=== PATIENT | male | born 1980 | race Caucasian/White ===

== ENCOUNTER → 2018-12-11 07:22 | Outpatient (CLI) | payer OTHER, SELFPAY ==
[2018-12-11 07:53] LABS: Hematocrit 43.1 % (41-53); Hemoglobin 14.3 g/dL (13.5-17.5); Mean Corpuscular HGB Conc 33.2 % (30-36); Mean Corpuscular Hemoglobin 27.4 PG (26-34); Mean Corpuscular Volume 82.4 fL (80-100); Platelet Count 193 X10^3/uL (150-400); Red Blood Cell Count 5.24 X10^6/uL (4.5-5.9); Red Cell Distribution Width 15.9 % (11.6-14.8); White Blood Cell Count 4.7 X10^3/uL (4.5-11.0)
[2018-12-11 08:14] LABS: Hemoglobin A1C% w Est Avg Glu 4.9 % (4.0-6.0)
[2018-12-11 08:15] LABS: Alanine Aminotransferase 29 IU/L (21-72); Albumin 4.5 g/dL (3.5-5.0); Albumin Globulin Ratio 1.8 (1.0-2.8); Alkaline Phosphatase 38 U/L (38-126); Aspartate Aminotransferase 33 IU/L (17-59); BUN Creatinine Ratio 17.7 (6-22); Bilirubin Total 0.9 mg/dL (0.2-1.3); Blood Urea Nitrogen 23 mg/dL (9-20); Calcium 9.6 mg/dL (8.4-10.2); Carbon Dioxide 28 mmol/L (22-32); Chloride 103 mmol/L (98-107); Estimated Glomerular Filt Rate > 60.0 mL/min (>60); Globulin 2.5 g/dL (1.7-4.1); Glucose 89 mg/dL (70-100); HEMOLYSIS < 15 (0-50); Potassium 3.9 mmol/L (3.4-5.1); Sodium 140 mmol/L (137-145)
[2018-12-11 08:16] LABS: C-Reactive Protein Quant < 0.5 mg/dL (<1.0)
[2018-12-11 08:25] LABS: Neutrophils Absolute Manual 2256 /uL (3000-5900); Total Cells Counted 100
[2018-12-11 08:28] LABS: Vitamin D 25 Hydroxy (D3) 46.9 ng/mL (30.0-100.0)
[2018-12-11 08:30] LABS: RBC Morphology Normal Morphology
[2018-12-11 08:45] LABS: TSH w/ Reflex to FT4 2.62 uIU/mL (0.47-4.68)
[2018-12-11 09:00] LABS: Vitamin B12 392 pg/mL (239-931)
[2018-12-13 13:53] LABS: Homocysteine 6.5 umol/L (< 11.4)
== END ==
PROVIDERS: PCP Family Medicine; Visit Provider Family Medicine
DX: E56.9 Vitamin deficiency, unspecified (principal); R00.2 Palpitations; Z00.01 Encounter for general adult medical examination with abnormal findings
CPT/HCPCS: 36415; 80053; 82306; 82607; 83036; 83090; 83735; 84403; 84443; 85025; 86140

== ENCOUNTER → 2020-05-27 08:28 | Outpatient (CLI) | payer OTHER, SELFPAY ==
[2020-05-27 09:30] LABS: Basophils Absolute Auto 0 /uL (0-100); Basophils Percent Auto 0.6 % (0-2); Eosinophils Absolute Auto 100 /uL (0-450); Eosinophils Percent Auto 2.3 % (2-4); Hematocrit 44.3 % (41-53); Hemoglobin 14.9 g/dL (13.5-17.5); Lymphocytes Absolute Auto 1400 /uL (1100-4500); Lymphocytes Percent Auto 28.1 % (25-40); Mean Corpuscular HGB Conc 33.6 % (30-36); Mean Corpuscular Hemoglobin 27.3 PG (26-34); Mean Corpuscular Volume 81.3 fL (80-100); Monocytes Absolute Auto 500 /uL (0-900); Monocytes Percent Auto 9.6 % (3-14); Neutrophils Absolute Auto 2900 /uL (1500-7000); Neutrophils Percent Auto 59.4 % (50-75); Platelet Count 190 X10^3/uL (150-400); Red Blood Cell Count 5.44 X10^6/uL (4.5-5.9); Red Cell Distribution Width 15.3 % (11.6-14.8); White Blood Cell Count 4.8 X10^3/uL (4.5-11.0)
[2020-05-27 09:48] LABS: Alanine Aminotransferase 26 IU/L (<50); Albumin 4.6 g/dL (3.5-5.0); Albumin Globulin Ratio 1.6 (1.0-2.8); Alkaline Phosphatase 35 U/L (38-126); Aspartate Aminotransferase 37 IU/L (17-59); BUN Creatinine Ratio 14.3 (6-22); Bilirubin Total 0.6 mg/dL (0.2-1.3); Blood Urea Nitrogen 18 mg/dL (9-20); Calcium 9.6 mg/dL (8.4-10.2); Carbon Dioxide 31 mmol/L (22-32); Chloride 102 mmol/L (98-107); Cholesterol 148 mg/dL (140-199); Estimated Glomerular Filt Rate > 60.0 mL/min (>60); Globulin 2.8 g/dL (1.7-4.1); Glucose 99 mg/dL (70-100); HDL Cholesterol 60 mg/dL (40-60); HEMOLYSIS < 15 (0-50); LDL Cholesterol Calculated 80 mg/dL (<100); Potassium 4.3 mmol/L (3.4-5.1); Sodium 137 mmol/L (137-145); Total Protein 7.4 g/dL (6.3-8.2); Triglycerides 40 mg/dL (35-150)
[2020-05-27 10:02] LABS: Vitamin D 25 Hydroxy (D3) 87.5 ng/mL (30.0-100.0)
[2020-05-27 10:18] LABS: TSH w/ Reflex to FT4 1.64 uIU/mL (0.47-4.68)
[2020-05-27 10:36] LABS: Vitamin B12 726 pg/mL (239-931)
[2020-05-27 11:03] LABS: Add Manual Diff / Slide Review SLIDE REVIEW; Anisocytosis 1+
== END ==
PROVIDERS: PCP Family Medicine; Referring Provider Family Medicine; Visit Provider Family Medicine
DX: Z00.00 Encounter for general adult medical examination without abnormal findings (principal); Z13.1 Encounter for screening for diabetes mellitus; Z13.6 Encounter for screening for cardiovascular disorders
CPT/HCPCS: 36415; 80053; 80061; 82306; 82607; 84443; 85025

== ENCOUNTER → 2020-06-07 13:39 | Outpatient (CLI) | payer OTHER, SELFPAY ==
[2020-06-07 14:45] LABS: Liquefaction Semen YES (YES); Sperm Count 54 x10^6/mL (20-150); Sperm Motility 50% % Motile
[2020-06-07 14:53] LABS: Sperm Morphology 87 %ABNORM (0-30)
== END ==
PROVIDERS: PCP Family Medicine; Referring Provider Family Medicine; Visit Provider Family Medicine
DX: Z30.09 Encounter for other general counseling and advice on contraception (principal)
CPT/HCPCS: 89320

== ENCOUNTER → 2021-09-11 06:50 | Outpatient (CLI) | payer OTHER, SELFPAY ==
[2021-09-11 08:10] LABS: Add Manual Diff / Slide Review NO; Basophils Absolute Auto 0 /uL (0-100); Basophils Percent Auto 0.8 % (0-2); Eosinophils Absolute Auto 100 /uL (0-450); Eosinophils Percent Auto 2.3 % (2-4); Hematocrit 40.7 % (41-53); Lymphocytes Absolute Auto 1500 /uL (1100-4500); Lymphocytes Percent Auto 36.8 % (25-40); Mean Corpuscular HGB Conc 34.4 % (30-36); Mean Corpuscular Hemoglobin 27.9 PG (26-34); Mean Corpuscular Volume 81.2 fL (80-100); Monocytes Absolute Auto 400 /uL (0-900); Monocytes Percent Auto 9.4 % (3-14); Neutrophils Absolute Auto 2100 /uL (1500-7000); Neutrophils Percent Auto 50.7 % (50-75); Platelet Count 170 X10^3/uL (150-400); Red Blood Cell Count 5.01 X10^6/uL (4.5-5.9); Red Cell Distribution Width 15.4 % (11.6-14.8); White Blood Cell Count 4.1 X10^3/uL (4.5-11.0)
[2021-09-11 08:20] LABS: Alanine Aminotransferase 19 IU/L (<50); Albumin 4.3 g/dL (3.5-5.0); Albumin Globulin Ratio 1.7 (1.0-2.8); Alkaline Phosphatase 37 U/L (38-126); Aspartate Aminotransferase 29 IU/L (17-59); BUN Creatinine Ratio 10.9 (6-22); Blood Urea Nitrogen 14 mg/dL (9-20); Calcium 9.2 mg/dL (8.4-10.2); Carbon Dioxide 28 mmol/L (22-32); Chloride 100 mmol/L (98-107); Cholesterol 150 mg/dL (140-199); Estimated Glomerular Filt Rate > 60 mL/min (>60); Globulin 2.5 g/dL (1.7-4.1); Glucose 91 mg/dL (70-100); HDL Cholesterol 56 mg/dL (40-60); HEMOLYSIS < 15 (0-50); LDL Cholesterol Calculated 83 mg/dL (<100); Potassium 4.3 mmol/L (3.4-5.1); Sodium 136 mmol/L (137-145); Total Protein 6.8 g/dL (6.3-8.2); Triglycerides 53 mg/dL (35-150)
== END ==
PROVIDERS: PCP Family Medicine; Referring Provider Family Medicine; Visit Provider Family Medicine
DX: N18.9 Chronic kidney disease, unspecified (principal)
CPT/HCPCS: 36415; 80053; 80061; 85025

== ENCOUNTER → 2022-09-28 08:06 | Outpatient (CLI) | payer OTHER, SELFPAY ==
[2022-09-28 09:28] LABS: Hematocrit 44.1 % (41-53); Mean Corpuscular Volume 82.4 fL (80-100); Platelet Count 192 X10^3/uL (150-400); Red Blood Cell Count 5.35 X10^6/uL (4.5-5.9); Red Cell Distribution Width 15.7 % (11.6-14.8); White Blood Cell Count 5.2 X10^3/uL (4.5-11.0)
[2022-09-28 09:34] LABS: Alanine Aminotransferase 27 IU/L (<50); Albumin 4.4 g/dL (3.5-5.0); Albumin Globulin Ratio 1.6 (1.0-2.8); Alkaline Phosphatase 43 U/L (38-126); Aspartate Aminotransferase 29 IU/L (17-59); BUN Creatinine Ratio 14.8 (6-22); Bilirubin Total 0.6 mg/dL (0.2-1.3); Blood Urea Nitrogen 21 mg/dL (9-20); Calcium 9.3 mg/dL (8.4-10.2); Carbon Dioxide 30 mmol/L (22-32); Chloride 104 mmol/L (98-107); Cholesterol 150 mg/dL (140-199); Estimated Glomerular Filt Rate > 60 mL/min (>60); Globulin 2.8 g/dL (1.7-4.1); Glucose 104 mg/dL (70-100); HDL Cholesterol 49 mg/dL (40-60); HEMOLYSIS < 15 (0-50); LDL Cholesterol Calculated 92 mg/dL (<100); Potassium 4.5 mmol/L (3.4-5.1); Sodium 139 mmol/L (137-145); Total Protein 7.2 g/dL (6.3-8.2); Triglycerides 47 mg/dL (35-150)
[2022-09-28 09:36] LABS: Add Manual Diff / Slide Review SLIDE REVIEW
[2022-09-28 09:51] LABS: Anisocytosis 2+
[2022-09-28 09:58] LABS: Cortisol AM (Before 10AM) 11.6 ug/dL (4.46-22.7); TSH w/ Reflex to FT4 1.24 uIU/mL (0.47-4.68)
[2022-09-28 10:01] LABS: Testosterone 611 ng/dL (132-813)
== END ==
PROVIDERS: PCP Family Medicine; Referring Provider Family Medicine; Visit Provider Family Medicine
DX: Z13.220 Encounter for screening for lipoid disorders (principal); Z13.9 Encounter for screening, unspecified; R53.83 Other fatigue
CPT/HCPCS: 36415; 80053; 80061; 82533; 84403; 84443; 85025

== ENCOUNTER 2022-11-14 09:14 | Emergency (ER) | payer OTHER, SELFPAY ==
--- NOTE | 2022-11-14 09:26 | ED_ITS ---
HPI - General Adult General Chief complaint: Back Pain/Injury Stated complaint: L side sciatic pain Time Seen by Provider: 11/14/22 09:19 History of Present Illness HPI narrative: 42-year-old male nonsmoker with history of low back pain presents with a chief complaint of significantly worsening low back pain with radiation down his left leg. He denies any trauma or injury. He denies fever or chills. He takes no blood thinners. He states that he has been dealing with some left low back pain and minor radicular symptoms for the past 4 weeks or so. He had tenderness in his piriformis and had been doing stretches with some relief. He states he moves in a particular fashion this morning and felt a popping sensation and now has significant pain and numbness shooting down his left lower back in the posterior leg. He denies loss of control of bowel or bladder. He denies any w eakness of his lower extremity. He has significant pain with motion and improvement with rest. He took Motrin 800 about 90 minutes ago Related Data Home Medications Medication Instructions Recorded Confirmed multivitamin (Multiple Vitamins 1 tab PO QDAY ##0 09/07/16 09/23/22 tablet) omega 1-pav-you-fish oil 1,000 mg 1,000 mg PO ##0 09/07/16 09/23/22 (120 mg-180 mg) capsule (Fish Oil) Previous Rx's Medication Instructions Recorded diazepam 5 mg tablet (Valium) 5 mg PO BID-QID PRN muscle spasm 11/14/22 #10 tabs hydrocodone 5 mg-acetaminophen 325 1 tab PO Q4-6H PRN pain #10 tabs 11/14/22 mg tablet ketorolac 10 mg tablet 10 mg PO Q6H PRN pain #14 tabs 11/14/22 methylprednisolone 4 mg tablets in See Rx Instructions PO .COMPLEX 11/14/22 a dose pack (Medrol (Darrno)) #21 ea Allergies Allergy/AdvReac Type Severity Reaction Status Date / Time No Known Drug Allergies Allergy Verified 11/14/22 09:28 Review of Systems Review of Systems Narrative: GENERAL: Denies chills, fatigue, malaise, fever, sweats. HEENT: Denies sinus pain, ear pain, sore throat, difficulty swallowing, dizziness. RESPIRATORY: Denies dyspnea, cough, wheezing, hemoptysis, sputum. CARDIOVASCULAR: Denies chest pain, palpitations, orthopnea, edema, GASTROINTESTINAL: Denies nausea, vomiting, abdominal pain, diarrhea, constipation, melena. : Denies dysuria, frequency, incontinence, hematuria, urinary retention. MUSCULOSKELETAL: See HPI SKIN: Denies rash, skin lesions, or other NEUROLOGIC: See HPI PSYCHIATRIC: No concerning psychosocial issues. 12 point review of systems is negative except for those stated above Patient History Medical History Family planning Heart palpitations Parotid gland pain Family History Mother Hypothyroid Social History marital status: Smoking Status: Never smoker alcohol intake: current (ON OCCASION ) substance use type: does not use Smoking Status: Never smoker Exam Narrative Exam Narrative: GENERAL: [42] year old patient appears stated age. Well-developed patient, in moderate distress, obviously in pain HEAD: Atraumatic. Normocephalic. EYES: Pupils equal round and reactive. Extraocular motions intact. No scleral icterus. No injection or drainage. ENT: Nose without bleeding, purulent drainage. Throat without erythema, tonsillar hypertrophy or exudate. Airway patent. NECK: Trachea midline. Non tender CARDIOVASCULAR: Regular rate and rhythm without murmurs, gallops, or rubs. RESPIRATORY: Clear to auscultation. Breath sounds equal bilaterally. No wheezes, rales, or rhonchi. GASTROINTESTINAL: Abdomen soft, non-tender, nondistended. EXTREMITIES: No edema or joint tenderness. 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 Patient exam notes decreased range of motion and muscle spasm, but no CVA tenderness, or vertebral point tenderness. There are no symptoms of cauda equina such as saddle anesthesia, and decreased reflexes, decreased sensation or strength. NEURO: AOx3. SKIN: No rash or erythema of visible areas Initial Vital Signs Initial Vital Signs: Vital Signs Temperature 98.2 F 11/14/22 09:28 Pulse Rate 83 11/14/22 09:28 Respiratory Rate 16 11/14/22 09:28 Blood Pressure 172/113 H 11/14/22 09:28 Pulse Oximetry 100 11/14/22 09:28 Oxygen Delivery Method Room Air 11/14/22 09:28 Course Orders Ordered: Discontinued Medications Hydrocodone Bitart/Acetaminophen (Hydrocodone/Acet 5/325 Tablet) 1 tab PO NOW ONE Stop: 11/14/22 11:10 Last Admin: 11/14/22 11:15 Dose: 1 tab Documented By: BETSY Diazepam (Diazepam 5 Mg Tablet) 5 mg PO NOW ONE Stop: 11/14/22 10:02 Last Admin: 11/14/22 10:11 Dose: 5 mg Documented By: DANYEL Gabapentin (Gabapentin 300 Mg Capsule) 300 mg PO NOW ONE Stop: 11/14/22 10:02 Last Admin: 11/14/22 10:11 Dose: 300 mg Documented By: DANYEL Prednisone (Prednisone 20 Mg Tablet) 40 mg PO NOW ONE Stop: 11/14/22 10:02 Last Admin: 11/14/22 10:11 Dose: 40 mg Documented By: DANYEL Vital Signs Vital signs: Vital Signs - 8 hr 11/14/22 09:28 Temperature 98.2 F Pulse Rate 83 Respiratory Rate 16 Blood Pressure 172/113 H Pulse Oximetry 100 Oxygen Delivery Method Room Air Medical Decision Making [facility] Narrative Medical decision making narrative: [42] year old patient presents with Multiple etiologies of back pain considered including; Epidural abscess, cauda equina, mass occupying lesion, and other considered] Prior Charts reviewed in our EMR Primary Historian: patient Patient's symptoms improved over duration of stay with above-stated therapies. History and physical exam are reassuring. Thankfully there are no elements of the story or exam that are red flags for neurosurgical emergencies such as epidural abscess, hematoma, cauda equina. Given lack of direct trauma there is little utility for x-ray. Findings and discharge diagnosis discussed with patient/family followed by verbalization of understanding Return precautions discussed with patient/family whom verbalize understanding of diagnosis and plan Discharge Plan Departure Patient Disposition: Home Clinical Impression: Acute left lumbar radiculopathy Instructions: DI for Lumbar Radiculopathy Activity Restrictions/Additional Instructions: *You have been diagnosed with [acute left-sided lumbar radiculopathy. Thankfully as we discussed your history and physical exam are reassuring and there is no evidence of a neurosurgical emergency that would require a specific or immediate intervention.] *What to do: *Please continue to take your regular medications as directed. [ x] New medication prescriptions sent to your pharmacy: [ [facility]] [ ] New medication written as a paper prescription [ ] No new medications given *Please follow up with your primary care provider in 2-3 days, call for an appointment. Let them know you were seen in the Emergency Department and that we ask that you be seen in follow up. We will electronically transmit a record of today's note if your PCP is in our system *Return to Emergency Department if you should have any new, worsening or concerning symptoms, such as [fever greater than 101 F, shaking chills, worsening pain, loss of control of bowel or bladder, weakness of your leg or other bothersome symptoms Prescriptions: New hydrocodone-acetaminophen 5-325 mg tablet 1 tab PO Q4-6H PRN (Reason: pain) Qty: 10 0RF ketorolac 10 mg tablet 10 mg PO Q6H PRN (Reason: pain) Qty: 14 0RF methylprednisolone [Medrol (Darron)] 4 mg tablets,dose pack See Rx Instructions .ROUTE .COMPLEX Qty: 21 0RF Rx Instructions: orally per package directions diazepam [Valium] 5 mg tablet 5 mg PO BID-QID PRN (Reason: muscle spasm) Qty: 10 0RF No Action multivitamin [Multiple Vitamins] 1 EACH tablet 1 tab PO QDAY Qty: 0 omega 4-mkd-fxw-fish oil [Fish Oil] 1,000 MG capsule 1,000 mg PO Qty: 0 Referrals: Wiliam Conner DO [Physician] - Rubin Woods MD [Primary Care Provider] - Bal Grider MD [Physician] - Stand Alone Forms: Patient Portal/API
[2022-11-14 09:28] VITALS: BP 172/113; PULSE 83; RESP 16; TEMP 36.8; O2SAT 100; BMI 28.5
--- NOTE | 2022-11-14 09:53 | PC.NURSE ---
pt states he has been having mild sciatica the last 4 weeks but today it pain shot through the roof and he is having difficulty with even walking. at home he has been doing stretches, foam rollers, ice, massage (deep tissue), chiropractic, acupuncture. pt describes his gluteal and periformis muscles as most uncomfortable.
[2022-11-14] MEDS: diazePAM 5 MG TABLET PO (10:11)
[2022-11-14] MEDS: GABAPENTIN 300 MG CAPSULE PO (10:11)
[2022-11-14] MEDS: predniSONE 20 MG TABLET 40 MG PO (10:11)
[2022-11-14] MEDS: HYDROCODONE/ACET 5/325 TABLET 1 TAB PO (11:15)
== END 2022-11-14 11:21 | disposition home or self-care (01) ==
PROVIDERS: Emergency Provider Emergency Medicine; PCP Family Medicine
DX: M54.16 Radiculopathy, lumbar region (principal)
CPT/HCPCS: 99283

== ENCOUNTER 2022-11-16 17:25 | Emergency (ER) | payer OTHER, SELFPAY ==
[2022-11-16 17:47] VITALS: BP 153/57; PULSE 59; RESP 18; TEMP 37.2; O2SAT 100; BMI 27.1
[2022-11-16] MEDS: diazePAM 5 MG TABLET PO (17:51)
[2022-11-16] MEDS: HYDROMORPHONE 1 MG INJ IM (18:06)
--- NOTE | 2022-11-16 19:11 | ED_ITS ---
HPI - Back Pain/Injury General Chief Complaint: Back Pain/Injury Stated Complaint: sciatic nerve pain T-2 Time Seen by Provider: 11/16/22 17:38 Source: patient and family History of Present Illness HPI Narrative: 42-year-old male who is here in the emergency department a couple days ago for left-sided lower back pain with left-sided radiculopathy. Was not 1 specific incident that caused the discomfort. He is not having any urinary symptoms nor fevers nor bowel changes. No abdominal pain. No saddle anesthesia. When he was here in the emergency department he was started on steroids and given muscle relaxers and pain medication and ketorolac. He states he still continues to have discomfort. Not so much with palpation but more so with movement and especially with standing. Related Data Home Medications Medication Instructions Recorded Confirmed multivitamin (Multiple Vitamins 1 tab PO QDAY ##0 09/07/16 09/23/22 tablet) omega 6-pdb-vop-fish oil 1,000 mg 1,000 mg PO ##0 09/07/16 09/23/22 (120 mg-180 mg) capsule (Fish Oil) Previous Rx's Medication Instructions Recorded diazepam 5 mg tablet (Valium) 5 mg PO BID-QID PRN muscle spasm 11/14/22 #10 tabs hydrocodone 5 mg-acetaminophen 325 1 tab PO Q4-6H PRN pain #10 tabs 11/14/22 mg tablet ketorolac 10 mg tablet 10 mg PO Q6H PRN pain #14 tabs 11/14/22 methylprednisolone 4 mg tablets in See Rx Instructions PO .COMPLEX 11/14/22 a dose pack (Medrol (Darron)) #21 ea docusate sodium 100 mg capsule 100 mg PO BID #30 caps 11/16/22 (Colace) hydrocodone 5 mg-acetaminophen 325 2 tab PO Q4-6H PRN pain #25 tabs 11/16/22 mg tablet meloxicam 7.5 mg tablet 7.5 mg PO BID #60 tabs 11/16/22 Allergies Allergy/AdvReac Type Severity Reaction Status Date / Time No Known Drug Allergies Allergy Verified 11/16/22 17:56 Review of Systems Constitutional Constitutional: Reports system reviewed and no additional complaints, except as documented Gastrointestinal Gastrointestinal: Reports system reviewed and no additional complaints, except as documented Genitourinary Genitourinary: Reports system reviewed and no additional complaints, except as documented Musculoskeletal Musculoskeletal: Reports system reviewed and no additional complaints, except as documented Integumentary/Breasts Skin/Breast: Reports system reviewed and no additional complaints, except as documented Neurologic Neurologic: Reports system reviewed and no additional complaints, except as documented Patient History Medical History Family planning Heart palpitations Parotid gland pain Family History Mother Hypothyroid Social History marital status: Smoking Status: Never smoker alcohol intake: current (ON OCCASION ) substance use type: does not use Smoking Status: Never smoker alcohol intake frequency: a few times a week Substance Use Type: does not use Exam Initial Vital Signs Initial Vital Signs: Vital Signs Temperature 99 F 11/16/22 17:47 Pulse Rate 59 L 11/16/22 17:47 Respiratory Rate 18 11/16/22 17:47 Blood Pressure 153/57 H 11/16/22 17:47 Pulse Oximetry 100 11/16/22 17:47 Oxygen Delivery Method Room Air 11/16/22 17:47 Const General: cooperative and No ill appearing HENMA Head: normal to inspection and normocephalic Back/Spine/Pelvis Thoracic/Lumbar Spine: No paraspinal tenderness, No thoracic spinal tenderness and No lumbar spinal tenderness Neuro General: patient alert, patient awake and moves all extremities Extrem General: normal to inspection and capillary refill normal Course Orders Ordered: ED Orders 11/16/22 19:11 XR lumbar spine 2-3V Stat Discontinued Medications Diazepam (Diazepam 5 Mg Tablet) 5 mg PO NOW ONE Stop: 11/16/22 17:48 Last Admin: 11/16/22 17:51 Dose: 5 mg Documented By: CAN Hydromorphone HCl (Hydromorphone 1 Mg Inj) 1 mg IM NOW ONE Stop: 11/16/22 17:56 Last Admin: 11/16/22 18:06 Dose: 1 mg Documented By: ZACH Ketorolac Tromethamine (Ketorolac 30 Mg/Ml Vial) 30 mg IM NOW ONE Stop: 11/16/22 17:48 Last Admin: 11/16/22 17:57 Dose: Not Given Documented By: CAN Vital Signs Vital signs: Vital Signs - 8 hr 07/08/23 17:47 11/16/22 21:01 Temperature 99 F Pulse Rate 59 L 51 L Respiratory Rate 18 Blood Pressure 153/57 H 127/76 Pulse Oximetry 100 97 Oxygen Delivery Method Room Air Room Air MDM - Back Pain/Injury Imaging Data lumbar x-rays: Radiologist's Impression: PROCEDURE:? XR LUMBAR SPINE 2-3V ? INDICATIONS:? L lower back pain with radiculopathy ? TECHNIQUE:? 3 views of the lumbar spine were acquired.? ? COMPARISON:? None. ? FINDINGS:? ? Bones:? 5 [id number]-[id number] vertebrae are present.? There is normal bony alignment.? No vertebral body compression fractures.? No suspicious bony lesions.? ? Soft tissues:? Overlying bowel gas pattern is normal.? No suspicious soft tissue calcifications.? Surgical changes of prior right inguinal hernia repair.? ? ? IMPRESSION:? Intact lumbar spine. MDM Narrative Medical decision making narrative: Patient does have lower back pain with left-sided radiculopathy. Low suspicion for cauda equina. X-ray negative for acute fracture. I have low suspicion for epidural abscess/hematoma. I had a long discussion with the patient and his at bedside regarding his symptoms. Patient was here hoping to get an MRI however we do not have MRI capability at this time here in the emergency department. I feel that there is no emergent reason to obtain an MRI. He may require 1 in the future however a course of medications and physical therapy would not be unreasonable 1st. Advised that he contact his primary doctor to discuss this and he could potentially get an MRI as an outpatient. He certainly should have follow-up with physical therapy and he will contact his primary doctor about this. I will refill his medications. I will switch him from ketorolac to Mobic. He was given return precautions. He expressed understa nding and agreement. Discharge Plan Departure Patient Disposition: Home Clinical Impression: Low back pain radiating to left lower extremity Instructions: DI for Lumbar Radiculopathy Activity Restrictions/Additional Instructions: I do recommend that you continue to take the medications as directed. You have no restrictions on your activities and I do recommend that you try to be as active as possible. I also recommend that you contact your primary doctor for continued evaluation and referrals if needed. Prescriptions: New meloxicam 7.5 mg tablet 7.5 mg PO BID Qty: 60 0RF docusate sodium [Colace] 100 mg capsule 100 mg PO BID Qty: 30 0RF hydrocodone-acetaminophen 5-325 mg tablet 2 tab PO Q4-6H PRN (Reason: pain) Qty: 25 0RF No Action multivitamin [Multiple Vitamins] 1 EACH tablet 1 tab PO QDAY Qty: 0 omega 0-nbm-mra-fish oil [Fish Oil] 1,000 MG capsule 1,000 mg PO Qty: 0 hydrocodone-acetaminophen 5-325 mg tablet 1 tab PO Q4-6H PRN (Reason: pain) Qty: 10 0RF ketorolac 10 mg tablet 10 mg PO Q6H PRN (Reason: pain) Qty: 14 0RF methylprednisolone [Medrol (Darron)] 4 mg tablets,dose pack See Rx Instructions .ROUTE .COMPLEX Qty: 21 0RF Rx Instructions: orally per package directions diazepam [Valium] 5 mg tablet 5 mg PO BID-QID PRN (Reason: muscle spasm) Qty: 10 0RF Referrals: Rubin Woods MD [Primary Care Provider] - Stand Alone Forms: Patient Portal/API
--- NOTE | 2022-11-16 19:11 | DI.RAD.S_ITS ---
PROCEDURE: XR LUMBAR SPINE 2-3V INDICATIONS: L lower back pain with radiculopathy TECHNIQUE: 3 views of the lumbar spine were acquired. COMPARISON: None. FINDINGS: Bones: 5 zju-zbv-[id number] vertebrae are present. There is normal bony alignment. No vertebral body compression fractures. No suspicious bony lesions. Soft tissues: Overlying bowel gas pattern is normal. No suspicious soft tissue calcifications. Surgical changes of prior right inguinal hernia repair. IMPRESSION: Intact lumbar spine. Dictated by: Becka Mcneil M.D. on 11/16/2022 at 20:10 Approved by: Becka Mcneil M.D. on 11/16/2022 at 20:11
[2022-11-16 21:01] VITALS: BP 127/76; PULSE 51; O2SAT 97
== END 2022-11-16 21:30 | disposition home or self-care (01) ==
PROVIDERS: Emergency Provider Emergency Medicine; PCP Family Medicine
DX: M54.50 Low back pain, unspecified (principal); M54.16 Radiculopathy, lumbar region
CPT/HCPCS: 72100; 96372; 99283; 99284; J1170; J1885

== ENCOUNTER → 2022-11-19 07:16 | Outpatient (CLI) | payer OTHER, SELFPAY ==
--- NOTE | 2022-11-19 07:17 | DI.MRI.S_ITS ---
PROCEDURE: MR LUMBAR SPINE WO CON INDICATIONS: Left L5 Radic TECHNIQUE: Noncontrast sagittal T1 spin echo and T2 fast echo, sagittal STIR, and T2 fast spin echo through the lumbar spine. In cases with scoliosis, additional coronal T2 fast spin echo may be performed. COMPARISON: [facility], CR, XR LUMBAR SPINE 2-3V, 11/16/2022, 19:12. FINDINGS: Image quality: Excellent. Alignment and Curvature: There is normal bony alignment. Bone Marrow: Marrow is of normal overall signal. No acute vertebral body compression fractures. No suspicious osseous edema. Spinal Cord: Conus medullaris terminates at the L1 level. Visualized cord demonstrates normal signal and size. Paraspinous Soft Tissues: No paravertebral masses. T12-L1: Normal appearance. L1-L2: Normal appearance. L2-L3: Normal appearance. L3-L4: Normal appearance. L4-L5: Mild disc height loss and desiccation. Mild circumferential diffuse disc bulge. There is peripheral posterior high T2 signal left paracentral indicating a small annular tear. There is minimal bulging of the disc at this level. There is encroachment on left neural foramen at and just below the disc line affecting the left L5 nerve root in the lateral recess. Mild facet and ligamentum flavum hypertrophy. Overall mild central canal narrowing. No foraminal narrowing. L5-S1: Mild disc desiccation and slight disc height loss. Mild to moderate broad-based disc bulge left central and inferior foraminal, superimposed on mild diffuse disc bulge. Disc material posteriorly displaces the left S1 nerve root in the lateral recess. There is mild enlargement and inflammation of the left S1 nerve root in the lateral recess. There is mild foraminal narrowing and no significant encroachment on the exiting left L5 nerve root. Mild facet arthropathy and slight ligamentum flavum hypertrophy contribute to cause of mild central canal narrowing. Mild bilateral foraminal narrowing, left worse than right. IMPRESSION: 1. Narrowing of the left lateral recess by broad-based disc bulge at the L4-5 level may affect the left L5 nerve root. 2. Broad-based L5-S1 disc bulge likely effects the left S1 nerve root in the lateral recess. Dictated by: Becka Mcneil M.D. on 11/19/2022 at 8:31 Approved by: Becka Mcneil M.D. on 11/19/2022 at 8:47
== END ==
PROVIDERS: PCP Family Medicine; Referring Provider Physical Medicine & Rehabilitation; Visit Provider Physical Medicine & Rehabilitation
DX: M51.16 Intervertebral disc disorders with radiculopathy, lumbar region (principal); M51.17 Intervertebral disc disorders with radiculopathy, lumbosacral region
CPT/HCPCS: 72148

== ENCOUNTER 2022-11-21 07:37 | Outpatient (CLI) | payer OTHER, SELFPAY ==
[2022-11-21] VITALS (7 sets, daily range): BP systolic 119–159; BP diastolic 74–101; PULSE 78–105; RESP 13–20; TEMP 36.3; O2SAT 94–99
--- NOTE | 2022-11-21 07:38 | DI.RAD.S_ITS ---
PROCEDURE: PAIN L INTERLAMINAR/CAUDAL INJ INDICATIONS: SPONDYLOSIS COMPARISON: [facility], MR, MR LUMBAR SPINE WO CON, 11/19/2022, 7:27. FINDINGS: Fluoroscopic spot filming was performed to verify placement of a spinal needle at the L5-S1 level, as labeled on the films. Appropriate location of the needle tip was confirmed by injection of iodinated contrast. IMPRESSION: No significant intraprocedural abnormality. Dictated by: Joe Herron M.D. on 11/21/2022 at 9:14 Approved by: Joe Herron M.D. on 11/21/2022 at 9:14
[2022-11-21] MEDS: MIDAZOLAM 2 MG/2 ML VIAL IV (08:33)
[2022-11-21] MEDS: BUPIVACAINE 0.25% (PF) VIAL 2 ML INJ (08:39)
[2022-11-21] MEDS: IOPAMIDOL 15 ML VIAL 3 ML INJ (08:40)
[2022-11-21] MEDS: BETAMETHASONE 30 MG/5 ML MDV 6 MG INJ (08:40)
[2022-11-21] MEDS: DEXAMETHASONE 10 MG/ML VIAL 20 MG INJ (08:40)
--- NOTE | 2022-11-21 08:59 | P.PCN_ITS ---
Date/Time/Diagnoses Date of procedure: 11/21/22 Time of procedure: 08:59 Pre-procedure diagnosis: 1. HNP WITH RADICULAR FEATURES, 2. MULTILEVEL CENTRAL STENOSIS, Post-procedure diagnosis: same Procedure Notes Procedure: 1. FLUOROSCOPICALLY GUIDED CONTRAST CONTROLLED INTERLAMINAR EPIDURAL STEROID INJECTION - L5/S1 Indications: Brent is referred by Dr. Woods for treatment of Bilateral Foraminal Stenosis L>R LE symptoms. Physician: Wiliam Conner Total Fluoroscopy time (seconds): 12 Total sedation minutes: 17 Complications: none Procedure in detail & Post-procedure care: FINDINGS Multilevel Central Spinal Stenosis with Nerve Root Compression DESCRIPTION OF PROCEDURE Fluoroscopically guided, contrast-controlled L5/S1 translaminar epidural steroid injection. Following review of allergy and review of potential side effects and complications, including, but not necessarily limited to, infection, allergic reaction, local tissue breakdown, temporary as well as permanent nerve injury, paralysis, stroke and possible , the patient indicated that the patient understood and agreed to proceed. An informed consent document was signed by the patient, witnessed by a nurse, and placed in the patient's chart. Additionally, other treatment options including modalities, medications, and physical therapy were reviewed with the patient. After review of previous anaesthesic history and IV conscious sedation the patient was deemed safe to proceed with today?s procedure with IV conscious sedation as ASA class II designation. Safety time-out was performed to confirm p atient ID, procedure to be performed and site of procedure. IV sedation was accomplished with a combination of 2mg of Versed administered by the RN after DO order, titrated to patient comfort during the course of the procedure while the patient remained responsive to all verbal commands. In the prone position, following sterile prep and drape of the lumbar region, the L5/S1 translaminar space was identified fluoroscopically. The skin was anesthetized via a 25-gauge, 1.5-inch needle with 1% lidocaine solution. At this point, a 22-gauge short bevel spinal needle was atraumatically introduced and advanced under fluoroscopic guidance into the region of the L5/S1 translaminar space. Depth was confirmed on lateral view. Radiological data, including multiple fluoroscopic views of the lumbar spine, reveal a spinal needle at the L5/S1 translaminar space. Lateral views then show placement of the needle in the epidural space. Subsequent views show contrast material flowing superiorly and inferiorly in the epidural space. No vascular or intrathecal uptake is observed. At this point, using loss of resistance technique with saline and air, the epidural space was entered. This was confirmed following negative aspiration with injection of approximately 1.5cc of Isovue 200, showing excellent epidural flow without vascular or intrathecal uptake. At this point, 1 cc of 1% lidocaine solution combined with 3cc or 20mg of dexamethasone and 6mg of betamethasone was injected without incident. The patent tolerated the procedure without signs of symptoms of complications prior to transfer to the recovery area for further monitoring. The patient was then transferred to the recovery area where they were observed for an appropriate period of time after the injection. The patient reported a VAS score of 8 prior to the procedure and a post-procedure VAS of 0. POST OP INSTRUCTIONS The patient was provided a Pain Log to continue to record their response to the target-specific procedure prior to follow-up visit with their referring physician. Additionally, specific post-injection care instructions and a contact number to our office were provided if concerns arise regarding possible complications associated with the procedure are suspected.
== END 2022-11-21 09:06 | disposition home or self-care (01) ==
LOC: RAD 07:37
PROVIDERS: PCP Family Medicine; Referring Provider Physical Medicine & Rehabilitation; Visit Provider Physical Medicine & Rehabilitation
DX: M51.17 Intervertebral disc disorders with radiculopathy, lumbosacral region (principal); M48.07 Spinal stenosis, lumbosacral region
CPT/HCPCS: 62323; 99152; J0702; J1100; J2250; J3490

== ENCOUNTER → 2022-12-05 12:58 | Outpatient (CLI) | payer OTHER, SELFPAY ==
[2022-12-05] VITALS (12 sets, daily range): BP systolic 94–146; BP diastolic 53–88; PULSE 74–114; RESP 9–22; TEMP 36.6; O2SAT 95–100
--- NOTE | 2022-12-05 13:00 | DI.RAD.S_ITS ---
PROCEDURE: PAIN L/S TRANSFORAM INJECT ADRIANA COMPARISON: [facility], XA, PAIN L INTERLAMINAR/CAUDAL INJ, 11/21/2022, 8:39. INDICATIONS: SPINAL STENOSIS FINDINGS: Fluoroscopic spot filming was performed to verify placement of spinal needles on the left at the L4-L5 and L5-S1 levels, as labeled on the films. Appropriate location of the needle tips was confirmed by injection of iodinated contrast. IMPRESSION: Intraprocedural examination demonstrating appropriate positions of the needles. Dictated by: Joe Herron M.D. on 12/05/2022 at 14:11 Approved by: Joe Herron M.D. on 12/05/2022 at 14:12
[2022-12-05] MEDS: fentaNYL 100 MCG/2 ML INJ 50 MCG IV ×2 (14:24→14:47)
[2022-12-05] MEDS: SODIUM CHLORIDE 0.9% 500 ML 1000 ML IV (14:24)
[2022-12-05] MEDS: MIDAZOLAM 2 MG/2 ML VIAL IV (14:24)
[2022-12-05] MEDS: BUPIVACAINE 0.5% (PF) 10 ML VIAL 5 ML INJ (14:30)
[2022-12-05] MEDS: BETAMETHASONE 30 MG/5 ML MDV 12 MG INJ (14:30)
[2022-12-05] MEDS: IOPAMIDOL 15 ML VIAL 3 ML INJ (14:31)
[2022-12-05] MEDS: methylPREDNISolone acetate 80 MG/ML VIAL INJ (14:31)
[2022-12-05] MEDS: MIDAZOLAM 2 MG/2 ML VIAL 1 MG IV ×2 (14:34→14:43)
--- NOTE | 2022-12-05 14:56 | P.PCN_ITS ---
Date/Time/Diagnoses Date of procedure: 12/05/22 Time of procedure: 14:56 Pre-procedure diagnosis: 1. FORAMINAL STENOSIS WITH LE SYMPTOMS Post-procedure diagnosis: same Procedure Notes Procedure: 1. FLUOROSCOPICALLY GUIDED CONTRAST CONTROLLED TRANSFORAMINAL EPIDURAL STEROID INJECTION - LEFT L4/5 Indications: Brent is referred by Dr. Woods and Can for treatment of HNP with Left LE Symptoms Physician: Wiliam Conner Total Fluoroscopy time (seconds): 17 Total sedation minutes: 24 Complications: none Procedure in detail & Post-procedure care: FINDINGS Foraminal Nerve Root Compression secondary to disc disease and facet hypertrophy DESCRIPTION OF PROCEDURE Following review of allergy and review of potential side effects and complications, including, but not necessarily limited to, infection, allergic reaction, local tissue breakdown, stroke, temporary or permanent nerve injury, paralysis, and possible , the patient indicated that the patient understood and agreed to proceed. An informed consent document was signed by the patient, witnessed by a nurse, and placed in the patient's chart. Additionally, other treatment options including medications, modalities, and physical therapy were reviewed with the patient. After review of previous anaesthesic history and IV conscious sedation the patient was deemed safe to proceed with today?s procedure with IV conscious sedation as ASA class II designation. Safety time-out was performed to confirm patient ID, procedure to be performed and site of procedure. IV sedation was accomplished with a combination of 3mg of Versed and 50mcg of Fentanyl administered by the RN after DO order, titrated to patient comfort during the course of the procedure while the patient remained responsive to all verbal commands. In the prone position following sterile prep and drape of the lumbar region, the left L4/5 posterior neuroforamen was identified fluoroscopically. The skin was anesthetized via a 25-gauge 1.5-inch needle with 1% lidocaine solution. At this point, a 25-gauge 3.5-inch spinal needle was atraumatically introduced and advanced under fluoroscopic guidance through the posterior left L4/5 neuroforamen to approximately the anterior aspect of the canal. Depth was confirmed on lateral view. Following negative aspiration, injection of approximately 1.5 cc of Isovue 200 under live fluoroscopy in the AP view confirmed excellent flow along the nerve root, into the epidural space without vascular or intrathecal uptake observed Radiological data, including multiple fluoroscopic views of the lumbosacral spine, reveal a spinal needle at the left L4/5 posterior neuroforamen. Subsequent views show flow of contrast material flowing superiorly and inferiorly along the nerve root confirming epidural flow. Subsequently, a test dose of 1.5 cc of 1% lidocaine solution was administered and patient was observed for two minutes for signs or symptoms of complications, including abdominal pain, shortness of breath, bilateral upper or lower extremity weakness, nausea and vomiting, prior to steroid injection. At this point, a total of 3cc or 40mg of depo medrol and 12mg of betamethasone was injected without incident. The procedure tolerated the procedure well without signs or symptoms of complications prior to transfer to the recovery area continued monitoring without incident. The patient was then transferred to the recovery area where they were observed for an appropriate time after the injection. The patient reported a VAS score of 8 prior to the procedure and a post- procedure VAS of 2. POST OP INSTRUCTIONS The patient was provided a Pain Log to continue to record their response to the target-specific procedure prior to follow-up visit with their referring physician. Additionally, specific post-injection care instructions and a contact number to our office were provided if concerns arise regarding possible complications associated with the procedure are suspected.
--- NOTE | 2022-12-05 14:59 | P.PCN_ITS ---
Date/Time/Diagnoses Date of procedure: 12/05/22 Time of procedure: 14:59 Pre-procedure diagnosis: 1. FORAMINAL STENOSIS WITH LE SYMPTOMS Post-procedure diagnosis: same Procedure Notes Procedure: 1. FLUOROSCOPICALLY GUIDED CONTRAST CONTROLLED TRANSFORAMINAL EPIDURAL STEROID INJECTION - Left L5/S1 Indications: Brent is referred by and Can for treatment of HNP with Left LE Symptoms Physician: Wiliam Conner Total Fluoroscopy time (seconds): 17 Total sedation minutes: 24 Complications: none Procedure in detail & Post-procedure care: FINDINGS Foraminal Nerve Root Compression secondary to disc disease and facet hypertrophy DESCRIPTION OF PROCEDURE Following review of allergy and review of potential side effects and complications, including, but not necessarily limited to, infection, allergic reaction, local tissue breakdown, stroke, temporary or permanent nerve injury, paralysis, and possible , the patient indicated that the patient understood and agreed to proceed. An informed consent document was signed by the patient, witnessed by a nurse, and placed in the patient's chart. Additionally, other treatment options including medications, modalities, and physical therapy were reviewed with the patient. After review of previous anaesthesic history and IV conscious sedation the patient was deemed safe to proceed with today?s procedure with IV conscious sedation as ASA class II designation. Safety time-out was performed to confirm patient ID, procedure to be performed and site of procedure. IV sedation was accomplished with a combination of 3mg of Versed and 50mcg of Fentanyl was administered by the RN after DO order, titrated to patient comfort during the course of the procedure while the patient remained responsive to all verbal commands In the prone position following sterile prep and drape of the lumbar region, the Left L5/S1 posterior neuroforamen was identified fluoroscopically. The skin was anesthetized via a 25-gauge 1.5-inch needle with 1% lidocaine solution. At this point, a 25-gauge 3.5-inch spinal needle was atraumatically introduced and advanced under fluoroscopic guidance through the posterior Left L5/S1 neurofor amen to approximately the anterior aspect of the canal. Depth was confirmed on lateral view. Following negative aspiration, injection of approximately 1.5 cc of Isovue 200 under live fluoroscopy in the AP view confirmed excellent flow along the nerve root, into the epidural space without vascular or intrathecal uptake observed Radiological data, including multiple fluoroscopic views of the lumbosacral spine, reveal a spinal needle at the Left L5/S1 posterior neuroforamen. Subsequent views show flow of contrast material flowing superiorly and inferiorly along the nerve root confirming epidural flow. Subsequently, a test dose of 1.5 cc of 1% lidocaine solution was administered and patient was observed for two minutes for signs or symptoms of complications, including abdominal pain, shortness of breath, bilateral upper or lower extremity weakness, nausea and vomiting, prior to steroid injection. At this point, a total of 3cc or 40mg of depo medrol and 12mg of betamethasone was i njected without incident. The procedure tolerated the procedure well without signs or symptoms of complications prior to transfer to the recovery area continued monitoring without incident. The patient was then transferred to the recovery area where they were observed for an appropriate time after the injection. The patient reported a VAS score of 7 prior to the procedure and a post-procedure VAS of 0. POST OP INSTRUCTIONS The patient was provided a Pain Log to continue to record their response to the target-specific procedure prior to follow-up visit with their referring physician. Additionally, specific post-injection care instructions and a contact number to our office were provided if concerns arise regarding possible complications associated with the procedure are suspected.
--- NOTE | 2022-12-05 15:24 | PC.NURSE ---
Patient ready to discharge based on sedation protocol. Stood patient with 2P SBA and he is numb and unsteady. Assisted back into recliner. Dr. Conner made aware. Will hold off on discharge for the time being until safe to send home.
== END ==
PROVIDERS: PCP Family Medicine; Referring Provider Physical Medicine & Rehabilitation; Visit Provider Physical Medicine & Rehabilitation
DX: M48.061 Spinal stenosis, lumbar region without neurogenic claudication (principal); M51.16 Intervertebral disc disorders with radiculopathy, lumbar region; M47.26 Other spondylosis with radiculopathy, lumbar region; M48.07 Spinal stenosis, lumbosacral region; M51.17 Intervertebral disc disorders with radiculopathy, lumbosacral region; M47.27 Other spondylosis with radiculopathy, lumbosacral region
CPT/HCPCS: 64483; 64484; 99152; 99153; J0702; J1040; J2250; J3010